=== PATIENT | male | born 1995 | race Caucasian/White ===

== ENCOUNTER 2017-07-22 21:51 | Emergency (ER) | payer SELFPAY ==
[~2017-07-22] VITALS: Ht 170.2 cm; Wt 82.0 kg
[2017-07-22 22:49] VITALS: BP 161/105; PULSE 97; RESP 18; TEMP 99; O2SAT 100
== END 2017-07-23 03:50 | disposition left against medical advice (07) ==
LOC: NED 21:51
DX: R10.9 Unspecified abdominal pain (principal)
CPT/HCPCS: 99281